=== PATIENT | male | born 1955 | race Caucasian/White ===

== ENCOUNTER → 2016-11-18 | Outpatient (CLI) | payer OTHER ==
[~2016-11-18] MED LIST: OPTIRAY 320 IV PRN
--- NOTE | 2016-11-18 11:11 | DIAGNOSTIC IMAGING REPORT ---
(CHEST FOR PE) ANGIO WITH CT DOSE: 554.61 mGycm HISTORY: 61 years-old Male acute dyspnea and cough with history of asthma. TECHNIQUE: Multiple CTA images of the chest were obtained after the intravenous administration of 94 ml Optiray 320. Coronal and sagittal MIPS were obtained from the axial data set and were submitted for review. A dose lowering technique was utilized adhering to the principles of ALARA. COMPARISON: Chest radiographs 10/11/2016. FINDINGS: CTA: Heart is normal in size without pericardial effusion. The thoracic aorta is normal in course and caliber without dissection or aneurysm. There is minimal atherosclerotic plaquing of the aortic isthmus. The pulmonary arterial tree is well-opacified to the level of the subsegmental branches demonstrates no focal filling defects to suggest pulmonary thromboembolic disease. CT CHEST: No focal thyroid nodule identified. No pathologic-appearing adenopathy of the chest is seen. There is no pneumothorax, pleural effusion or focal airspace consolidation. There is mild dependent subsegmental bibasilar atelectasis. Subsegmental linear opacities of the right middle lobe and inferior segment lingula suggest atelectasis or scarring. Multifocal areas of bronchial wall thickening with areas of apparent mucous plugging are noted bilaterally, nicely seen on image 129 of the axial series. Soft tissue attenuation within the lobar and segmental bronchi of the inferior segment lingula are noted. No focal pulmonary nodules are identified. Low attenuating subcentimeter lesions of the hepatic dome are seen measuring up to 6 mm, nonspecific however statistically favoring cysts or hemangiomas. No gross abnormality of the upper abdomen. The soft tissues are unremarkable. Note is made of symmetric bilateral gynecomastia. The bones appear grossly intact. Mild multilevel endplate spurring is seen throughout the spine. IMPRESSION: 1. No acute aortic pathology or evidence of pulmonary thromboembolic disease. 2. Moderate multilobar distribution of bronchial wall thickening with scattered areas of mucous plugging are noted suggesting bronchitis. Soft tissue attenuation within the lobar and segmental bronchus of the inferior segment lingula suggests additional mucous plugging. This could be correlated with bronchoscopy if of further clinical concern. The above report was generated using voice recognition software. It may contain grammatical, syntax or spelling errors. Electronically signed by: Ken Juarez M.D. 11/18/2016 11:09 AM Dictated Date/Time: 11/18/2016 11:01 AM
== END | disposition home or self-care (01) ==
LOC: C.CTS 10:17
PROVIDERS: ATTEND Internal Medicine Pulmonary Disease
DX: J45.909 Unspecified asthma, uncomplicated (principal); R06.00 Dyspnea, unspecified

== ENCOUNTER → 2016-11-26 | Outpatient (CLI) | payer OTHER ==
[~2016-11-26] MED LIST changes: +ADVIN50/60 INH; +ASPI-232 PO; +ATOR10TA88 PO; +ESCI1TAB10 PO; +FLUT0.15; +MONT1TAB3 PO; -OPTIRAY 320 IV PRN; +PRED20TA PO; +PRLSR20 PO
[2016-12-02 19:30] LABS: ASPERGILLUS FLAVUS Negative (Negative); ASPERGILLUS FUMIGATUS Negative (Negative); ASPERGILLUS NIGER Negative (Negative); IMMUNOGLOBULIN E TC 24620E 186 KU/L (<115)
== END | disposition home or self-care (01) ==
LOC: C.LAB1850 15:15
PROVIDERS: ATTEND Internal Medicine Pulmonary Disease
DX: J45.909 Unspecified asthma, uncomplicated (principal); R05 Cough

== ENCOUNTER → 2016-11-30 | Outpatient (CLI) | payer OTHER ==
--- NOTE | 2016-11-30 16:50 | DOBUTAMINE ECHO ---
*NOTICE TO RECEIVING REPUBLICAN AGENCY This information is strictly Confidential and protected under [place] law. [place] law prohibits you from making any further disclosure of this information unless further disclosure is expressly permitted by the written consent of the person to whom it pertains or is authorized by law. A general authorization for the release of medical or other information is not sufficient for this purpose. Hospital accepts no responsibility if the information is made available to any other person, INCLUDING THE PATIENT. Interpretation Summary * Name: HERMILO MALLORY Study Date: 11/30/2016 12:01 PM BP: 134/78 mmHg * Patient Location: [facility] HR: 60 * : 1955 (M/d/yyyy) Gender: Male Height: 70 in * Age: 61 yrs Ethnicity: CA Weight: 200 lb * Ordering Physician: Scott Eaton * Referring Physician: Scott Eaton * Performed By: Kassandra Travis RCS * * Reason For Study: Dyspnea on exertion * BSA: 2.1 m2 * -- Conclusions -- * 1. Normal stress echocardiogram at 11.3 METS and peak heart of 85% predicted maximum. * 2. No exercise-induced chest pain. * 3. No EKG changes. * 4. Baseline echocardiogram notes normal left ventricular systolic function and no significant valvular pathology. Procedure Details * Left Ventricle The left ventricle is normal in size. There is normal left ventricular wall thickness. Ejection Fraction = 60-65%. Left ventricular systolic function is normal. Resting wall motion: Normal. Stress wall motion: Appropriate increase in Left ventricular systolic function and decrease in cavity size. No stress induced segmental wall motion abnormalities. * Right Ventricle The right ventricle is grossly normal size. The right ventricular systolic function is normal as assessed by tricuspid annular plane systolic excursion (TAPSE) (normal >1.5 cm). * Atria Borderline left atrial enlargement. Borderline right atrial enlargement. There is no evidence of atrial septal defect, but resolution does not allow assessment for a patent foramen ovale. * Mitral Valve The mitral valve anatomy is normal. There is no mitral valve stenosis. Significant mitral regurgitation is absent. * Tricuspid Valve The tricuspid valve anatomy is normal. There is no tricuspid stenosis. Significant tricuspid regurgitation is absent. * Aortic Valve The aortic valve is normal in structure and function. No hemodynamically significant valvular aortic stenosis. No aortic regurgitation is present. * Pulmonic Valve The pulmonary valve is not well seen, but the Doppler examination is normal without significant regurgitation or stenosis. * Great Vessels The aortic root is normal size. * Pericardium There is no pericardial effusion. * Stress Parameters Normal baseline electrocardiogram. Stress ECG: No ST changes. No arrhythmias. The stress portion of this study was personally supervised by the undersigned interpreting physician. Rest heart rate was '66' BPM. Rest blood pressure was '131/74' Maximum heart rate achieved was 135 bpm. Maximum heart rate was 85 % of maximum age-predicted heart rate. Maximum blood pressure was '171/85' Total exercise time was '09:47' Maximum exercise MET level achieved was '11.3' METS Maximum treadmill speed was '4.2' miles per hour. Maximum treadmill elevation was '16'% grade. * * MMode 2D Measurements and Calculations * IVSd 0.86 cm * * LVIDd 5.2 cm * LVIDs 2.6 cm * LVPWd 1.0 cm * * IVS/LVPW 0.82 * FS 49.4 % * EDV(Teich) 128.5 ml * ESV(Teich) 25.1 ml * EF(Teich) 80.4 % * * EDV(cubed) 139.1 ml * ESV(cubed) 18.0 ml * EF(cubed) 87.0 % * * LV mass(C)d 180.8 grams * LV mass(C)dI 86.6 grams/m\S\2 * * SV(Teich) 103.3 ml * SI(Teich) 49.5 ml/m\S\2 * SV(cubed) 121.1 ml * SI(cubed) 58.0 ml/m\S\2 * * Ao root diam 3.8 cm * Ao root area 11.1 cm\S\2 * * LVOT diam 2.5 cm * LVOT area 4.7 cm\S\2 * * LVAd ap4 37.3 cm\S\2 * LVLd ap4 9.1 cm * EDV(MOD-sp4) 124.6 ml * EDV(sp4-el) 129.0 ml * LVAs ap4 20.1 cm\S\2 * LVLs ap4 7.1 cm * ESV(MOD-sp4) 50.3 ml * ESV(sp4-el) 48.5 ml * EF(MOD-sp4) 59.6 % * EF(sp4-el) 62.4 % * * LVAd ap2 31.2 cm\S\2 * LVLd ap2 8.3 cm * EDV(MOD-sp2) 96.1 ml * EDV(sp2-el) 99.7 ml * LVAs ap2 15.0 cm\S\2 * LVLs ap2 6.7 cm * ESV(MOD-sp2) 30.5 ml * ESV(sp2-el) 28.4 ml * EF(MOD-sp2) 68.3 % * EF(sp2-el) 71.5 % * * LVLd %diff -10.22 % * EDV(MOD-bp) 114.7 ml * LVLs %diff -5.06 % * ESV(MOD-bp) 38.9 ml * EF(MOD-bp) 66.1 % * * SV(MOD-sp4) 74.3 ml * SI(MOD-sp4) 35.6 ml/m\S\2 * * SV(MOD-sp2) 65.7 ml * SI(MOD-sp2) 31.5 ml/m\S\2 * * SV(MOD-bp) 75.8 ml * SI(MOD-bp) 36.3 ml/m\S\2 * * SV(sp4-el) 80.5 ml * SI(sp4-el) 38.6 ml/m\S\2 * * SV(sp2-el) 71.2 ml * SI(sp2-el) 34.1 ml/m\S\2 * * * Doppler Measurements and Calculations * MV E max liz 68.5 cm/sec * MV A max liz 65.2 cm/sec * * MV E/A 1.0 * * MV dec time 0.16 sec * * Ao V2 max 131.8 cm/sec * Ao max PG 7.0 mmHg * Ao max PG (full) 4.6 mmHg * IZZY(V,A) 2.8 cm\S\2 * IZZY(V,D) 2.8 cm\S\2 * * LV V1 max PG 2.4 mmHg * * LV V1 max 77.1 cm/sec * * TR max liz 253.2 cm/sec * * *
== END | disposition home or self-care (01) ==
LOC: C.CPL 11:50
PROVIDERS: ATTEND Internal Medicine Pulmonary Disease
DX: J45.909 Unspecified asthma, uncomplicated (principal); R06.00 Dyspnea, unspecified

== ENCOUNTER → 2016-12-23 | Outpatient (CLI) | payer OTHER ==
[2016-12-23 12:31] LABS: BASO % 0.4 %; BASO ABS # 0.04 K/uL (0-0.2); COMPLETE YES; EOS % 1.5 %; HEMATOCRIT 43.3 % (42-52); IG% 0.6 %; LYMPH % 10.7 %; LYMPH ABS # 0.96 K/uL (1.2-3.4); MEAN CELL VOLUME 86.9 fL (80-100); MEAN CORPUSCULAR HEMOGLOBIN 29.7 pg (25-34); MEAN CORPUSCULAR HGB CONC 34.2 g/dl (32-36); MONO % 8.9 %; NEUT % 77.9 %; PLATELET COUNT 227 K/uL (130-400); RED BLOOD COUNT 4.98 M/uL (4.7-6.1); WHITE BLOOD COUNT 8.96 K/uL (4.8-10.8)
[2016-12-23 12:41] LABS: PROTHROMBIN TIME (PATIENT) 10.7 SECONDS (9.0-12.0)
[2016-12-23 13:04] LABS: ALT/SGPT 20 U/L (12-78); AST/SGOT 11 U/L (15-37); BLOOD UREA NITROGEN 13 mg/dl (7-18); BUN/CREATININE RATIO 15.4 (10-20); CALCIUM 8.8 mg/dl (8.5-10.1); CARBON DIOXIDE 25 mmol/L (21-32); CHLORIDE 98 mmol/L (98-107); CREATININE 0.86 mg/dl (0.60-1.40); GLUCOSE 97 mg/dl (70-99); POTASSIUM 4.1 mmol/L (3.5-5.1); SODIUM 132 mmol/L (136-145)
[2016-12-23 13:06] LABS: ALB/GLOB RATIO 0.9 (0.9-2); ALKALINE PHOSPHATASE 43 U/L (45-117)
[2016-12-27 09:03] VITALS: BP 126/76; PULSE 69; TEMP 36.5; O2SAT 96
[2016-12-27 09:32] VITALS: BP 126/76; PULSE 65; TEMP 36.7; O2SAT 94
== END | disposition home or self-care (01) ==
LOC: C.LAB1850 11:06
PROVIDERS: ATTEND Internal Medicine Pulmonary Disease
DX: J45.909 Unspecified asthma, uncomplicated (principal); R05 Cough

== ENCOUNTER → 2016-12-27 | Day surgery (SDC) | payer OTHER ==
[2016-12-27] VITALS (15 sets, daily range): BP systolic 111–144; BP diastolic 67–82; PULSE 64–71; TEMP 36.5–36.8; O2SAT 92–97; Ht 177.8 cm; Wt 93.0 kg
[~2016-12-27] VITALS: Ht 177.8 cm; Wt 93.0 kg
[~2016-12-27] MED LIST changes: +DEXTROSE 5% 1000ML 1,000 ML IV SCH; +FENTANYL CITRATE INJ 50 MCG/1 ML 2 ML VIAL IV SCH; +MIDAZOLAM HCL 5 MG/ML 1 ML VIAL IV SCH; +NURSING VERBAL MED ORDER ONE
--- NOTE | 2016-12-27 09:32 | History and Physical ---
History & Physical Date Dec 27, 2016. Chief Complaint Progressive cough or shortness of breath and poorly controlled asthma History of Present Illness The patient is a 61 year old male with complaints of progressive cough or shortness of breath and poorly controlled asthma: The patient is a 61 year old male who presents to [facility] with complaints of Asthma, Cough. The patient's primary care provider is Merry Barry DO. 61-year-old gentleman with history of asthma now appears to be severe persistent. He is here for bronchoscopic evaluation secondary to prolonged cough associated shortness of breath with workup showing an FEV1/FVC ratio of 75 % with no clinically significant bronchodilator response. He also has evidence of hyperinflation and mucus plugging seen on recent CT scan. Antibodies to Aspergillus were within normal limits an IgE levels were notably elevated. At this time patient proceeding forward with bronchoscopy for evaluation etiology for chronic cough and shortness of Breath. Active Problems 1. Allergic rhinitis 2. Asthma 3. Chest tightness or pressure 4. Cough 5. Depressive disorder 6. Dyslipidemia 7. Dyspnea 8. Organic sleep apnea Surgical History 1. History of Brain Surgery 2. History of Dental Surgery 3. History of Diagnostic Cystoscopy 4. History of Nasal Endoscopy - Maxillary Sinus 5. History of Tonsillectomy Family History 1. Family history of diabetes mellitus 2. Family history of malignant neoplasm of prostate Social History Alcohol use Never smoker Current Meds 1. Advair Diskus 500-50 MCG/DOSE Inhalation Aerosol Powder Breath Activated; INHALE 1 PUFF TWICE DAILY 2. Albuterol Sulfate (2.5 MG/3ML) 0.083% Nebulization DOSE EVERY 4-6 HOURS NEEDED FOR WHEEZING 3. Ativan 0.5 MG Oral Tablet; TAKE 1 TABLET TWICE DAILY NEEDED 4. Atorvastatin Calcium 10 MG Oral Tablet; TAKE 1 TABLET DAILY DIRECTED 5. Azelastine HCl SOLN 6. Doxycycline CPDR 7. Fluticasone Propionate 50 MCG/ACT Nasal Suspension; USE 2 SPRAYS IN EACH NOSTRIL TWICE DAILY 8. Lexapro 20 MG Oral Tablet; TAKE 1 TABLET DAILY 9. Montelukast Sodium 10 MG Oral Tablet; TAKE 1 TABLET DAILY NEEDED 10. Omeprazole 20 MG Oral Tablet Delayed Release; TAKE 1 TABLET BEDTIME; 11. PredniSONE TBPK; 12. Proventil HFA 108 (90 Base) MCG/ACT EVERY 4-6 HOURS NEEDED 13. Triamcinolone Acetonide 0.1 % External Cream; APPLY A THIN LAYER TOAREA(S) TWICE DAILY 14. Zyrtec 10 MG TABS; TAKE 1 TABLET DAILY NEEDED Allergies 1. Amoxicillin TABS 2. Penicillins Additional History Hepatic Disease: No Endocrine Disorder: No Kidney Disease: No Hypertension: No Heart Disease: No Bleeding Tendencies: No Infectious Diseases: No Other: Sleep apnea Allergies Coded Allergies: Penicillin G (Verified Allergy, Unknown, RASH , 12/27/16) Amoxicillin (Verified Adverse Reaction, Unknown, N/V, 12/27/16) Clavulanic Acid (Verified Adverse Reaction, Unknown, N/V, 12/27/16) Home Medications Scheduled Aspirin (Aspir-81), 1 TAB PO DAILY Atorvastatin (Lipitor), 1 TAB PO DAILY Escitalopram Oxalate (Lexapro), 20 MG PO DAILY Fluticasone Prop/Salmeterol (Advair Diskus 500/50 60 Dose), 1 PUFFS INH BID Montelukast Sodium (Singulair), 1 TAB PO DAILY Omeprazole (Prilosec), 20 MG PO DAILY Prednisone (Prednisone), 1 TAB PO DAILY Miscellaneous Medications Fluticasone Propionate (Nasal) (Flonase Allergy Relief) Physical Examination Skin: warm/dry, no rash Eyes: normal inspection, EOMI, sclerae normal ENT: normal ENT inspection, pharynx normal Head: normocephalic, atraumatic Neck: supple, no adenopathy, trachea midline Respiratory/Chest: lungs clear, normal breath sounds, no respiratory distress Cardiovascular: regular rate, rhythm, no edema, no murmur Abdomen / GI: normal bowel sounds, non tender Back: normal inspection Extremities: normal inspection, normal range of motion Neurologic/Psych: no motor/sensory deficits, alert, normal reflexes, oriented x 3 Diagnosis Poorly controlled asthma with progressive cough and shortness of breath possible ABPA versus atypical infection ASA Classification: ASA Class III Plan of Treatment Bronchoscopy with conscious sedation and bronchial lavage
--- NOTE | 2016-12-27 10:03 | History & Physical Bridge Note ---
H&P Re-Evaluation Bridge Note: I have examined the patient, reviewed the History & Physical and in the interval since the performance of the History & Physical I have noted the following changes of clinical significance: No changes noted
--- NOTE | 2016-12-27 10:04 | Procedure Note ---
Pre-Mod Sedation Assessment General Date of Moderate Sedation: Dec 27, 2016. Vital Signs: Vital Signs Past 12 Hours Date Time Temp Pulse Resp B/P (MAP) Pulse Ox O2 Delivery O2 Flow Rate FiO2 12/27/16 09:03 36.5 69 18 126/76 (93) 96 Room Air Review Cardiovascular: regular rate, rhythm, no edema, no gallop, no JVD, no murmur Abdomen: normal bowel sounds, non tender, soft, no organomegaly, no pulsatile mass Lungs: chest non-tender, lungs clear, normal breath sounds Airway Class: II Pre-Sedation Airway Assessment Oral Cavity: Capped Teeth Able to Visualize Vocal Cords: Yes Short Thick Neck: No Hx of Sleep Apnea: Yes Smoking Status: Never Smoker Mallampati Classification: Class II ASA Classification: Class I Procedure Planning Contraindications-for Mod Sed: None Yes Notes The planned sedation has been discussed with the patient and consent obtained. I have identified the patient, determined the appropriateness of sedation and have assessed the patient immediately prior to the procedure. All medicine(s) and interventions are by my order.
--- NOTE | 2016-12-27 10:42 | Procedure Note ---
Post-Moderate Sedation Plan General Date of Moderate Sedation Dec 27, 2016. Vital Signs: Vital Signs Past 12 Hours Date Time Temp Pulse Resp B/P (MAP) Pulse Ox O2 Delivery O2 Flow Rate FiO2 12/27/16 10:17 36.5 69 18 126/76 96 Room Air 12/27/16 09:03 36.5 69 18 126/76 (93) 96 Room Air Review - Discharge Plan Post Moderate Sedation Plan: On clinical assessment, the patient appears to have tolerated the conscious sedation without complications. Patient is recovering as anticipated. Patient will continue to be monitored by nursing and may be discharged when conscious sedation discharge criteria are met.
--- NOTE | 2016-12-27 10:43 | Bronchoscopy Procedure Note ---
Bronchoscopy Procedure Note Procedure: Bronchoscopy, conscious sedation, Consent: Obtained through the patient placed into the chart Pre-procedural diagnosis: Moderately persistent asthma refractory to treatment, chronic cough, dyspnea Post-procedural diagnosis: Moderately persistent asthma refractory to treatment , chronic cough, dyspnea Start time: 1020 End time: 1038 Total time: minutes Analgesia: 2% liquid lidocaine: Via nebulizer 4% gel lidocaine: Via right naris 2% liquid lidocaine: Via bronchoscopy Sedation: Versed IV: 4 mg Fentanyl IV: 75 g Procedure: The Olympus video bronchoscope was used for this procedure and passed down through the right naris Right naris/posterior naris/posterior oropharynx: Anatomically within normal limits Glottis: Anatomically within normal limits Vocal cords: Proper abduction and abduction, anatomically within normal limits Subglottis/trachea/Lucy: Anatomically within normal limits Right bronchial tree: Right mainstem bronchus: Anatomically within normal limits Right upper lobe: Anatomically within normal limits Bronchus intermedius: Anatomically within normal limits Right middle lobe: Anatomically within normal limits Right lower lobe: Anatomically within normal limits Findings: No significant findings noted Left bronchial tree: Left mainstem bronchus: Anatomically within normal limits Left upper lobe: Anatomically within normal limits Lingula: Anatomically within normal limits Left lower lobe: Anatomically within normal limits Findings: No significant findings noted Bronchial alveolar lavage: Lingula EBL: None Complications: None Follow-up: In the [facility]
--- NOTE | 2016-12-27 10:45 | Discharge Instructions ---
Discharge Instructions Date of Service Dec 27, 2016. Admission Reason for Admission: Asthma, Cough Discharge Discharge Diagnosis / Problem: moderate persistent asthma with chronic cough and dyspnea Discharge Goals Goal(s): Diagnostic testing Activity Recommendations Activity Limitations: resume your previous activity . Instructions / Follow-Up Instructions / Follow-Up Follow-up with Dr. Scott Eaton in the [facility] pulmonary clinic Current Hospital Diet Patient's current hospital diet: Discharge Diet Recommended Diet: Regular Diet Procedures Procedures Performed: Bronchoscopy with bronchial lavage of the lingula and conscious sedation Pending Studies Studies pending at discharge: no Medical Emergencies . Who to Call and When: Medical Emergencies: If at any time you feel your situation is an emergency, please call 911 immediately. . Non-Emergent Contact Non-Emergency issues call your: [employer] . . "Provider Documentation" section prepared by Oneil Crowley. . VTE Core Measure Inpt VTE Proph given/why not?: Treatment not indicated
== END | disposition home or self-care (01) ==
LOC: C.ACU 08:36
PROVIDERS: ATTEND Internal Medicine Critical Care Medicine
DX: J45.40 Moderate persistent asthma, uncomplicated (principal); E78.5 Hyperlipidemia, unspecified; F32.9 Major depressive disorder, single episode, unspecified; G47.39 Other sleep apnea; Z79.899 Other long term (current) drug therapy